=== PATIENT | male | born 1935 | race Caucasian/White ===

== ENCOUNTER 2016-06-12 00:20 | Observation (INO) ==
[2016-06-12 00:50] LABS: Basophils % 0.4 %; Eosinophils # 0.2 K/mcL (0.0-0.6); Hematocrit 33.2 % (37.5-50.1); Hemoglobin 11.5 g/dL (12.9-16.9); Immature Granulocytes % 1.1 % (0-4); Lymphocytes # 1.7 K/mcL (0.6-4.6); Mean Corpuscular HGB Conc 34.6 g/dL (31.6-35.5); Mean Corpuscular Volume 83.6 fL (83.0-100.0); Mean Platelet Volume 9.8 fL (9.4-12.4); Monocytes # 0.9 K/mcL (0.0-1.3); Monocytes % 10.9 %; Neutrophils # 5.3 K/mcL (1.6-8.9); Platelet Count 264 K/mcL (140-400); Red Blood Count 3.97 M/mcL (4.19-5.50); Red Cell Distribution Width 12.8 % (11.5-14.5); Segmented Neutrophils % 64.6 %
[2016-06-12 00:55] LABS: INR 1.1; Prothrombin Time 11.8 Seconds (9.4-12.1)
[2016-06-12 00:58] LABS: Activated Partial Thrombo Time 29.5 Seconds (26.0-36.0)
[2016-06-12 01:05] LABS: Calcium 8.3 mg/dL (8.6-10.8); Potassium 3.4 mEq/L (3.5-4.5)
--- NOTE | 2016-06-12 01:29 | Emergency Department Note ---
Disposition Clinical Impression: Gastroenteritis, Dehydration, Chronic kidney disease, stage III (moderate) Disposition: Admitted As Inpatient Condition: Fair Referrals: NO,PCP [Primary Care Provider] - Forms: ED Satisfaction Letter Time of Disposition: 02:39 (naomi joiner) Nausea/Vomiting/Diarrhea HPI - General Chief complaint: ED Nausea/Vomiting/Diarrhea Stated complaint: dehydrated wait too long at [facility] Time Seen by Provider: 06/12/16 00:30 Source: patient Mode of arrival: ambulatory Limitations: no limitations Nursing Notes Reviewed: Yes Vital Signs Reviewed: Yes - History of Present Illness HPI Narrative: Elderly male who comes into the emergency room apparently was seen at [facility] urgent care had blood work done received a phone call stating that the labs were abnormal but he needs to give the hospital right away he went down to [facility] emergency room where he waited until 11:00 and after having not been seen he then got in his vehicle and then drove to our facility patient apparently received a phone call stating that his labs were abnormal as hydrated and he was having complications as result chills me has a history of chronic renal disease and he states that he just had cold symptoms within past week remarkable stress of granddaughter great-granddaughters recently been hospitalized septic Pt Subjective Complaint: nausea, vomiting, diarrhea, abdominal pain Onset (ago): week(s) Description of emesis: food contents Description of Diarrhea: water Associated Abdominal Pain: Yes If pain, Location of pain: diffuse Severity: mild Severity scale (1-10): 1 Quality: cramping Consistency: intermittent Improves with: bowel movement Worsens with: eating Context: sick contacts Associated symptoms: Reports: loss of appetite, malaise, nausea/vomiting. Denies: myalgias, chest pain, cough, diaphoresis, fever/chills, headaches, dysuria, shortness of breath, syncope, weakness - Related Data Home Medications Medication Instructions Recorded Confirmed Famotidine [Pepcid] 40 mg PO BID 03/10/15 03/10/15 GlipiZIDE [Glucotrol] 10 mg PO BIDWM 03/10/15 03/10/15 Hydrochlorothiazide 25 mg PO DAILY 03/10/15 03/10/15 Levothyroxine [Synthroid] 25 mcg PO 0630 03/10/15 03/10/15 Liraglutide [Victoza 2-Sam] 1.2 mg IM DAILY 03/10/15 03/10/15 Losartan Potassium [Cozaar] 50 mg PO DAILY 03/10/15 03/10/15 NIFEdipine [Nifedical Xl] 60 mg PO DAILY 03/10/15 03/10/15 Previous Rx's Medication Instructions Recorded Docusate [Colace] 100 mg PO BID #30 capsule 03/14/15 TraMADol [Ultram] 100 mg PO QID #40 tablet 03/14/15 Allergies Allergy/AdvReac Type Severity Reaction Status Date / Time codeine AdvReac Hallucinati Verified 06/12/16 00:27 ng morphine AdvReac Vomiting Verified 06/12/16 00:27 All systems ED: reviewed and negative except as stated. Constitutional: Reports: weakness. Denies: fever, chills Eyes: Denies: eye pain, eye discharge ENT ED: Denies: ear pain, throat pain, dental pain Cardiovascular: Denies: chest pain, palpitations Respiratory: Denies: cough, dyspnea, wheezes Gastrointestinal: Reports: abdominal pain, nausea, vomiting Genitourinary: Denies: urgency, dysuria Musculoskeletal: Denies: back pain Integumentary: Denies: abrasion, lesions Psychiatric: Denies: anxiety Endocrine: Denies: fatigue Hematological/Lymphatic: Denies: easy bleeding Allergic/Immunologic: Denies: facial swelling Past Medical History - Past Medical History Attestation: Yes The following information was validated with the patient. Source: patient, old records reviewed, nursing notes reviewed Medical history: Reports: cancer, diabetes, hypertension, renal disease Surgical history: Reports: no surgical history Psychiatric history: Reports: no psych history - Social History Smoking Status: Former smoker Alcohol use: Reports: none Drug use: Reports: none Physical Exam - General Limitations: no limitations General appearance: alert, in no apparent distress - Head Head exam: atraumatic, normocephalic, normal inspection - Eye Eye exam: Present: normal appearance, PERRL, EOMI - ENT ENT exam: normal exam, normal oropharynx, mucous membranes dry, TM's normal bilaterally, normal external ear exam - Neck Neck exam: Present: normal inspection, full ROM, trachea midline - Chest Chest inspection: Present: normal inspection, symmetric chest wall rise - Respiratory Respiratory exam: Present: normal lung sounds bilaterally - Cardiovascular Cardiovascular exam: Present: regular rate, normal rhythm, normal heart sounds - Abdominal Exam Abdominal exam: Present: soft, Non-Tender, normal bowel sounds. Absent: mass, pulsatile mass - Extremities Exam Extremities exam: Present: normal inspection, full ROM, normal capillary refill. Absent: tenderness, joint swelling - Expanded Lower Extremity Exam Gait: observed and normal - Back Exam Back exam: Present: normal inspection, full ROM. Absent: muscle spasm - Neurological Exam Neurological exam: Present: alert, oriented X3, CN II-XII intact, normal gait - Psychiatric Psychiatric exam: Present: normal affect, normal mood - Skin Skin exam: Present: warm, dry, intact, normal color Course Course Narrative: Seen and examined patient was given IV and 100 mL's an hour age loading him with fluid boluses would be detrimental continued intermittently congestive heart failure because of decreased renal function patient was placed in an mL shower spelled [facility] for admission Vital Signs Temperature 97.4 F L 06/12/16 00:21 Pulse Rate 60 06/12/16 00:21 Respiratory Rate 16 06/12/16 00:21 Blood Pressure 184/79 06/12/16 00:21 O2 Sat by Pulse Oximetry 97 06/12/16 00:21 Temperature 97.4 F L 06/12/16 00:21 Pulse Rate 56 06/12/16 02:06 Respiratory Rate 16 06/12/16 02:06 Blood Pressure 146/67 06/12/16 02:06 O2 Sat by Pulse Oximetry 97 06/12/16 02:06 Oxygen Delivery Oxygen Delivery Room Air Nausea/Vomiting/Diarrhea - Differential Diagnosis Likely: gastroenteritis - Medical Records Medical records reviewed: Yes I reviewed the patient's medical records. - Lab Data Lab results reviewed: Yes I reviewed the patient's lab results. Result diagrams: 06/12/16 00:45 06/12/16 00:45 Lab Results 06/12/16 06/12/16 06/12/16 Range/Units 00:45 00:45 00:45 WBC 8.2 (4.3-11.1) K/mcL RBC 3.97 L (4.19-5.50) M/mcL Hgb 11.5 L (12.9-16.9) g/dL Hct 33.2 L (37.5-50.1) % MCV 83.6 (83.0-100.0) fL MCH 29.0 (28.0-33.3) pg MCHC 34.6 (31.6-35.5) g/dL RDW 12.8 (11.5-14.5) % Plt Count 264 (140-400) K/mcL MPV 9.8 (9.4-12.4) fL Immature Gran % 1.1 (0-4) % Seg Neutrophils % 64.6 % Lymphocytes % 21.0 % Monocytes % 10.9 % Eosinophils % 2.0 % Basophils % 0.4 % Neutrophils # 5.3 (1.6-8.9) K/mcL Lymphocytes # 1.7 (0.6-4.6) K/mcL Monocytes # 0.9 (0.0-1.3) K/mcL Eosinophils # 0.2 (0.0-0.6) K/mcL Basophils # 0.0 (0.0-0.2) K/mcL PT 11.8 (9.4-12.1) Seconds INR 1.1 APTT 29.5 (26.0-36.0) Seconds Sodium 135 L (136-145) mEq/L Potassium 3.4 L (3.5-4.5) mEq/L Chloride 99 (98-109) mEq/L Carbon Dioxide 24 (19-29) mEq/L BUN 35 H (8-26) mg/dL Creatinine 2.47 H (0.72-1.25) mg/dL Est GFR ( Amer) 31 L (> 60) Est GFR (Non-Af Amer) 25 L (> 60) BUN/Creatinine Ratio 14 (6-26) Glucose 317 H (70-99) mg/dL Calculated Osmolality 300 (280-300) Calcium 8.3 L (8.6-10.8) mg/dL Troponin I (0-0.03) ng/mL 06/12/16 Range/Units 00:45 WBC (4.3-11.1) K/mcL RBC (4.19-5.50) M/mcL Hgb (12.9-16.9) g/dL Hct (37.5-50.1) % MCV (83.0-100.0) fL MCH (28.0-33.3) pg MCHC (31.6-35.5) g/dL RDW (11.5-14.5) % Plt Count (140-400) K/mcL MPV (9.4-12.4) fL Immature Gran % (0-4) % Seg Neutrophils % % Lymphocytes % % Monocytes % % Eosinophils % % Basophils % % Neutrophils # (1.6-8.9) K/mcL Lymphocytes # (0.6-4.6) K/mcL Monocytes # (0.0-1.3) K/mcL Eosinophils # (0.0-0.6) K/mcL Basophils # (0.0-0.2) K/mcL PT (9.4-12.1) Seconds INR APTT (26.0-36.0) Seconds Sodium (136-145) mEq/L Potassium (3.5-4.5) mEq/L Chloride (98-109) mEq/L Carbon Dioxide (19-29) mEq/L BUN (8-26) mg/dL Creatinine (0.72-1.25) mg/dL Est GFR ( Amer) (> 60) Est GFR (Non-Af Amer) (> 60) BUN/Creatinine Ratio (6-26) Glucose (70-99) mg/dL Calculated Osmolality (280-300) Calcium (8.6-10.8) mg/dL Troponin I 0.02 (0-0.03) ng/mL - Radiology Data Radiology results reviewed: Yes I reviewed the patient's radiology results. ITS Impressions Chest/Abdomen X-ray 06/12/16 00:38 IMPRESSION: No evidence of free air or obstruction. The lungs are clear. D/ / Doreen Schrader MD / Doreen Schrader MD Interpreting Provider: Doreen Schrader MD - EKG Data EKG attestation: Yes I reviewed and interpreted this EKG. EKG results narrative: bradycardia degree AV block nonspecific T wave changes rate 49 MI-243 QRS 88 QT 410 [place] I Critical Care Time Critical Care Time: No
[2016-06-12] MEDS ORDERED: 0.9 % Sodium Chloride 1,000 ML IVC SCH ×2 (02:30→04:04)
[2016-06-12] MEDS ORDERED: D5% in Water 1,000 ML IVC PRN (04:04)
[2016-06-12] MEDS ORDERED: Dextrose Gel 15 GM PO PRN ×2 (04:04)
[2016-06-12] MEDS ORDERED: Ondansetron 4 MG/2 ML VIAL IVP PRN (04:04)
[2016-06-12] MEDS ORDERED: Naloxone 0.4 MG/ML INJ IVP PRN (04:04)
[2016-06-12] MEDS ORDERED: *HR* Dextrose 50 % in Water (Syg) 50 ML SYRINGE IVP PRN (04:04)
[2016-06-12] MEDS: NIFEdipine XL (24 HR) 30 MG TAB.ER.24 PO SCH (06:08)
[2016-06-12] MEDS: Levothyroxine 25 MCG TABLET PO SCH (06:08)
[2016-06-12] MEDS ORDERED: Famotidine 20 MG TABLET PO SCH (07:30)
[2016-06-12] MEDS: *HR* GlipiZIDE 5 MG TABLET PO SCH ×2 (08:22→16:17)
[2016-06-12] MEDS: Insulin LISPRO 300 UNITS/3 ML VIAL SQ SCH ×3 (08:24→18:49)
[2016-06-12] MEDS ORDERED: NIFEdipine XL (24 HR) 30 MG TAB.ER.24 PO SCH (09:00)
--- NOTE | 2016-06-12 13:36 | Electrocardiograph Report ---
[place] [id number] Test Date: 2016-06-12 Pat Name: Juanpablo Lock Department: [id number] Room: [facility] Gender: M Larder Cook: Kerline : 1935 Requested By: Nora Vanessa Order Number: [id number] Reading MD: Kumar Hernandez MD Measurements Intervals [place] Rate: 49 P: 27 ME: 243 QRS: 1 QRSD: 88 T: 60 QT: 410 QTc: 382 Interpretive Statements SINUS BRADYCARDIA WITH FIRST DEGREE AV BLOCK NONSPECIFIC T-WAVE ABNORMALITY Electronically Signed On 06-12-2016 13:35:09 EDT by Kumar Hernandez MD
--- NOTE | 2016-06-12 14:54 | Internal Med History&Physical ---
Date of Encounter: 06/12/16 Time of Encounter: 14:20 Assessment and Plan (1) Hypokalemia Current visit: Yes Status: Acute He will be given supplemental potassium. Hydrochlorothiazide and Cozaar will be held. Follow-up labs will be done in a.m. (2) Lung nodule, multiple Current visit: No Status: Acute We will order chest CT to follow-up (3) Renal mass, right Current visit: No Status: Acute Will order abdominal/pelvis CT (4) Chronic kidney disease, stage III (moderate) Current visit: Yes Status: Chronic He appears to have acute on chronic renal insufficiency. We will give IV fluids and hold hydrochlorothiazide and Cozaar as per above. Recheck labs in a.m. (5) Anemia Current visit: Yes Status: Acute We will order anemia testing in a.m. Qualifiers: Anemia type: unspecified type Qualified Code(s): D64.9 - Anemia, unspecified (6) Hoarseness Current visit: Yes Status: Acute Will order CT of soft tissues of the neck Internal Medicine - H&P: HPI Chief complaint: Electrolyte imbalance Admitted From: Home Plans for Post Hospital Care: Home History of present illness: Mr. Lock is a 81 year old male who was directed to come to the emergency room for evaluation after labs drawn earlier in the day showed hypokalemia and worsening azotemia. He was evaluated in emergency room and admitted to [facility] floor for ongoing care needs. He states he had gone to [facility] urgent care earlier in the day when he had not felt well over a week. He was diagnosed in urgent care 1 week earlier with influenza B had completed a course of Tamiflu. He went back back to urgent care earlier the day of admission stating he still felt malaise and weakness. Lab work showed abnormalities and he was directed to ER as per above. He reports he has had some loose stools but denies watery diarrhea. He denies melena or hematochezia. He denies nausea vomiting abdominal pain fevers or chills. GI history is pertinent for cholecystectomy several months ago. He has GERD. He denies disorders of his liver or exocrine pancreas. Past Med Surg Social Fam HX - Past Medical History Medical history: cancer, diabetes, hypertension, renal disease Psychiatric history: no psych history - Past Surgical History Surgical History: no surgical history - Social History Smoking Status: Former smoker Alcohol use: none Drug use: none - Family History Daughter Family Member Ethnicity: Non- Living Status: Still Living Hx Family Cancer: Yes (breast cancer) Internal Medicine - H&P: Meds Famotidine [Pepcid] 40 mg PO BID 03/10/15 [History] GlipiZIDE [Glucotrol] 10 mg PO BIDWM 03/10/15 [History] Hydrochlorothiazide 25 mg PO DAILY 03/10/15 [History] Levothyroxine [Synthroid] 25 mcg PO 0630 03/10/15 [History] Liraglutide [Victoza 2-Sam] 1.2 mg IM DAILY 03/10/15 [History] Losartan Potassium [Cozaar] 50 mg PO DAILY 03/10/15 [History] NIFEdipine [Nifedical Xl] 60 mg PO DAILY 03/10/15 [History] Docusate [Colace] 100 mg PO BID #30 capsule 03/14/15 [Rx] TraMADol [Ultram] 100 mg PO QID #40 tablet 03/14/15 [Rx] Allergies codeine Adverse Reaction (Verified 06/12/16 00:27) Hallucinating morphine Adverse Reaction (Verified 06/12/16 00:27) Vomiting All Systems PM: A 10-system review of systems was performed and is negative for pertinent findings except as documented above in the HPI. Review of systems: Gen.: His weight has been stable at approximately 95 kg since March 2015 admission at [facility] Cardiovascular: Has history of hypertension but denies VA heart failure angina DVT or pulmonary embolus. Respiratory: He states he smoked from age [age] up to 2 packs per day. He does not wear home oxygen and denies chronic lung disease. A chest CT done March 2015 showed small pulmonary nodules. Repeat CT was recommended in 12 months. GI: As per history of present illness : He was diagnosed with prostate CA and underwent XRT in 2009. He is presumed cancer free from prostate cancer. He has had right renal inferior pole mass documented on CT scan August 2015 and follow-up ultrasound a few weeks ago which showed findings concerning for renal cell cancer. He did not mention this during the history and physical. He has chronic kidney disease stage III diagnosis and follows with [facility] Neurologic: He denies large distribution strokes or seizures. Endocrine: He was diagnosed with DM 2 approximately 2009. He has hypothyroidism but denies hyperlipidemia. Hematology/oncology: He had prostate CA with XRT as per above. He has right inferior pole renal mass concerning for malignancy as per above. He states he was diagnosed with throat cancer 2012 and underwent XRT and was felt to be cancer free at his last ENT visit approximately 1 month ago. He describes what sounds to be direct laryngoscopy at that visit and was told there were some abnormalities of his vocal cords but he is uncertain of the exact diagnosis. He has noticed increased hoarseness over the past 6 months. He was found to have anemia on blood work emergency room. He denies previous knowledge of anemia Psychiatric: He denies anxiety depression or other mental health issues [place] skeletal: He has mild DJD but denies other bone joint or muscle disorders. His uric acid level was elevated at 7.8 on 01/26/2015. - Constitutional Vitals: Temp Pulse Resp BP Pulse Ox 98.1 F 62 16 176/63 97 06/12/16 11:15 06/12/16 11:15 06/12/16 11:15 06/12/16 11:15 06/12/16 05:36 Exam: Gen.: He is a well-developed well-nourished male who appears in minimal distress at present time HEENT: Head is atraumatic normocephalic. Eyes: EOMI. There is no scleral icterus. Mouth: Mucosa is moist. Neck: Supple and nontender. There is no thyromegaly or adenopathy noted. Heart: Regular without murmurs gallops or ectopics Lungs: No wheezes or crackles are heard. Abdomen: Soft and nontender. No masses or guarding are noted. Extremities: There is no cyanosis edema or clubbing noted. Dorsalis pedis and posterior tibial pulses are 1-2 over 2 bilaterally. Neurologic: Mental status: He is talkative and seems to be a reliable historian. His voice is hoarse and raspy. Cranial nerves: Smile is symmetric. Forehead wrinkles bilaterally. Tongue protrudes midline. EOMI. Motor: There is no pronator drift. Cerebellar: Finger to nose is intact bilaterally. Skin: Warm and dry. Internal Med - H&P Results - Labs CBC & Chem 7: 06/12/16 00:45 06/12/16 00:45
[2016-06-12] MEDS: 0.45 % Sodium Chloride w/KCl 20 MEQ/1,000 ML MLS IVC SCH (16:14)
[2016-06-12] MEDS: Famotidine 20 MG TABLET PO SCH (16:16)
[2016-06-13 05:05] LABS: Basophils % 0.3 %; Eosinophils # 0.2 K/mcL (0.0-0.6); Eosinophils % 2.6 %; Hematocrit 28.7 % (37.5-50.1); Immature Granulocytes % 0.9 % (0-4); Lymphocytes # 1.4 K/mcL (0.6-4.6); Lymphocytes % 21.2 %; Mean Corpuscular HGB Conc 34.8 g/dL (31.6-35.5); Mean Corpuscular Hemoglobin 29.3 pg (28.0-33.3); Mean Corpuscular Volume 84.2 fL (83.0-100.0); Monocytes # 0.8 K/mcL (0.0-1.3); Monocytes % 11.5 %; Neutrophils # 4.1 K/mcL (1.6-8.9); Platelet Count 259 K/mcL (140-400); Red Blood Count 3.41 M/mcL (4.19-5.50); Segmented Neutrophils % 63.5 %
[2016-06-13 05:30] LABS: Albumin 2.4 g/dL (3.5-5.0); Albumin/Globulin Ratio 0.8 (1.1-2.2); Bilirubin,Total 0.3 mg/dL (0.2-1.2); Calcium 7.9 mg/dL (8.6-10.8); Potassium 3.7 mEq/L (3.5-4.5); Total Protein 5.4 g/dL (6.0-8.3); Uric Acid 6.2 mg/dL (3.5-7.2)
[2016-06-13] MEDS: 0.45 % Sodium Chloride w/KCl 20 MEQ/1,000 ML MLS IVC SCH (05:35)
[2016-06-13] MEDS: Levothyroxine 25 MCG TABLET PO SCH (05:35)
[2016-06-13] MEDS: Famotidine 20 MG TABLET PO SCH (05:35)
[2016-06-13 05:50] LABS: Thyroid Stimulating Hormone 3.613 mcIU/mL (0.350-4.840)
[2016-06-13 07:22] VITALS: BP 162/73
[2016-06-13] MEDS: *HR* GlipiZIDE 5 MG TABLET PO SCH (07:59)
[2016-06-13] MEDS: NIFEdipine XL (24 HR) 30 MG TAB.ER.24 PO SCH (08:01)
[2016-06-13] MEDS: Insulin LISPRO 300 UNITS/3 ML VIAL SQ SCH (08:02)
[2016-06-13 09:45] LABS: Folate 5.1 ng/mL (7.0-31.4)
--- NOTE | 2016-06-13 10:06 | Discharge Summary ---
Date of Encounter: 06/13/16 Time of Encounter: 09:55 - Discharge Diagnosis (1) Hypokalemia Priority: Primary Status: Resolved (2) Lung nodule, multiple Priority: Secondary Status: Chronic (3) Renal mass, right Priority: Secondary Status: Chronic (4) Chronic kidney disease, stage III (moderate) Priority: Secondary Status: Chronic (5) Anemia Priority: Secondary Status: Acute Qualifiers: Anemia type: unspecified type Qualified Code(s): D64.9 - Anemia, unspecified (6) Hoarseness Priority: Secondary Status: Chronic - Discharge Medications Prescriptions: CloNIDine HCl [Clonidine HCl] 0.2 mg PO Q8H #90 tab Home Medications: Famotidine [Pepcid] 40 mg PO BID 03/10/15 [History] GlipiZIDE [Glucotrol] 10 mg PO BIDWM 03/10/15 [History] Levothyroxine [Synthroid] 25 mcg PO 0630 03/10/15 [History] Liraglutide [Victoza 2-Sam] 1.2 mg IM DAILY 03/10/15 [History] NIFEdipine [Nifedical Xl] 60 mg PO DAILY 03/10/15 [History] Docusate [Colace] 100 mg PO BID #30 capsule 03/14/15 [Rx] TraMADol [Ultram] 100 mg PO QID #40 tablet 03/14/15 [Rx] CloNIDine HCl [Clonidine HCl] 0.2 mg PO Q8H #90 tab 06/13/16 [Rx] Allergies/Adverse Reactions: Allergies codeine Adverse Reaction (Verified 06/12/16 00:27) Hallucinating morphine Adverse Reaction (Verified 06/12/16 00:27) Vomiting Procedures/tests Complete & Pending: Procedures Performed prior 72 hours Category Date Time Status CT abd pelvis wo no iv no oral [CT] Routine Cat Scan 06/12/16 14:[address] chest wo con [CT] Routine Cat Scan 06/12/16 14:[address] soft tissue neck wo con [CT] Routine Cat Scan 06/12/16 14:49 Completed Date of admission: 06/12/16 02:53 Primary care physician: Sophia Villatoro CNP - Patient Status Disposition: Home, Self-Care Condition: Fair Overall status at discharge: patient is progressing back to baseline - Discharge Instructions Follow Up With: Sophia Villatoro CNP [Advanced Practice Nurse] - 1 week - Diet and Activity Activity: resume usual activities as tolerated Diet: advance to your usual diet Hospital course: Mr. Lock is a 81 year old male who was directed to come to the emergency room for evaluation after labs drawn earlier in the day showed hypokalemia and worsening azotemia. He was evaluated in emergency room and admitted to [facility] for ongoing care needs. Initial orders were written by the emergency room physician. I saw him on June 12 and performed the history and physical. Hydrochlorothiazide and Cozaar were held. He was given IV fluids and azotemia improved significantly with BUN and creatinine being 25 and 1.77 respectively on 06/13/2016 labs. His estimated GFR had risen to 37. Potassium normalized to 3.7. He will remain off hydrochlorothiazide and Cozaar at discharge. He was started on clonidine and continued on Procardia for blood pressure control. CT of chest, abdomen/pelvis, and neck were done to follow-up on known previous malignancies of prostate and throat and suspected inferior pole right renal malignancy. The abdominal/pelvic CT scan showed slight enlargement of the renal mass to 3.9 x 3.4 cm. This was increased from 3.8 x 3.2 cm seen on the August 2015 CT scan. There was a sclerotic focus in the C3 vertebra with metastatic disease not excluded. It was recommended that a contrast MRI be done to further evaluate. I will let his PCP Sophia Villatoro CNP order this and possibly refer to [email or web address] for further evaluation of the right renal mass. Chest CT showed overall stability of previously seen lung nodules. There were no definitive masses or adenopathy seen in the noncontrast neck CT. Anemia testing was ordered with results pending at time of this dictation. On June 13 he wished to be discharged home which I felt was reasonable. He will follow with his PCP Sophia Villatoro CNP within 1 week. - Time Spent with Patient Total time spent providing and/or coordinating discharge services: - Constitutional Vitals: Temp Pulse Resp BP Pulse Ox 98.4 F 58 16 162/73 96 06/13/16 07:21 06/13/16 07:21 06/13/16 07:21 06/13/16 07:21 06/13/16 09:57
== END 2016-06-13 11:23 | disposition home or self-care (01) ==
LOC: INPPIK 00:20 → EMEROOPIK 00:20 → INPPIK 03:24
PROVIDERS: ADMIT Internal Medicine; ATTEND Internal Medicine